=== PATIENT | female | born 1965 | race Caucasian/White ===

== ENCOUNTER 2018-10-10 10:03 | Emergency (ER) | payer OTHER ==
--- NOTE | 2018-10-10 10:43 | RADIOLOGY IMAGING REPORT ---
FACILITY: [facility] PATIENT NAME: Nany Desouza : 1965 MR: [id number] V: [id number] EXAM DATE: ORDERING PHYSICIAN: CRYSTAL HESTER TECHNOLOGIST: Location: [facility] - [place] Patient: Nany Desouza : 1965 Visit/Account:[id number] Date of Sevice: 10/10/2018 CHEST PA LAT HISTORY: Cough. Shortness of breath. History of smoking. COMPARISON: None FINDINGS: Cardiomediastinal contours: The heart size is normal. Lungs and pleura: Flattening of the diaphragms and an increase in AP diameter are suggestive COPD. T here are subtle areas of lucency in the upper lung ying bilaterally could represent changes of cent ral lobar emphysema. Correlation with past medical history is recommended. Bones/soft tissues: There are no findings of a fracture. IMPRESSION: 1. Findings suggestive of hyperinflation. Correlate with past medical history. 2. No findings of an infiltrate or congestive heart failure. Report Dictated By: Uriah Smith MD at 10/10/2018 10:37 AM Report E-Signed By: Uriah Smith MD at 10/10/2018 10:38 AM WSN:[id number]
[2018-10-10 11:00] VITALS: BP 132/78
[2018-10-10] MEDS ORDERED: AZIT-1 PO ×2 (11:13→11:16)
[2018-10-10] MEDS ORDERED: BENZ100C4 PO (11:16)
--- NOTE | 2018-10-10 11:17 | ER Report ---
History and Physical Time Seen By MD: 10:10 Hx. of Stated Complaint: PT REPORTS COUGH, CURRENTLY ON STEROIDS, DENIES FEVER AND BODY ACHES HPI/ROS CHIEF COMPLAINT: Cough productive of green sputum HISTORY OF PRESENT ILLNESS: Patient is a 53-year-old female with past medical history significant for induced lupus and history of seizures. Patient states that for the past 7-10 days she's been dealing with worsening progressive cough that has been productive of green sputum. She does have a history of reactive airways disease and does take Proventil. She is currently also on a steroid taper secondary to the lupus flare. She states that she was driving today reached [place] on her way to go to [place] and felt increasingly short of breath with cough. She reports subjective fevers and chills. She denies any ch est pain she denies abdominal pain. She denies nausea vomiting or diarrhea. REVIEW OF SYSTEMS: Respiratory: Cough productive of green sputum Cardiovascular: No chest pain, no palpitations. Gastrointestinal: No vomiting, no abdominal pain. Musculoskeletal: No back pain. Allergies: Coded Allergies: Sulfa (Sulfonamide Antibiotics) (Verified Allergy, Unknown, 10/10/18) divalproex sodium (Verified Allergy, Unknown, 10/10/18) lamotrigine (Verified Allergy, Unknown, 10/10/18) Home Meds Active Scripts Benzonatate 100 Mg Cap (TESSALON PERLE 100 MG CAP) 100 Mg Capsule, 100 MG PO TID for cough, #15 CAP 0 Refills Prov:CRYSTAL HESTER MD 10/10/18 Azithromycin (ZITHROMAX) 250 Mg Tablet, 0 PO QDAY, #6 TAB 2 tablets today; then one tablet daily for four more days Prov:CRYSTAL HESTER MD 10/10/18 Discontinued Scripts Azithromycin (ZITHROMAX) 250 Mg Tablet, 0 PO QDAY, #6 TAB 0 Refills 2 tablets today; then 1 tablet daily for 4 more days Prov:CRYSTAL HESTER MD 10/10/18 Past Medical/Surgical History Past medical history for seizure disorder as well as drug-induced lupus Constitutional Physical Exam General Appearance: The patient is alert, has no immediate need for airway protection and no current signs of toxicity. Eyes: Pupils equal and round no injection. Respiratory: Chest is non tender, lungs are clear to auscultation. Cardiac: regular rate and rhythm Gastrointestinal: Abdomen is soft and non tender, no masses, bowel sounds normal. Musculoskeletal: Neck: Neck is supple and non tender. Extremities have full range of motion and are non tender. Skin: No rashes or lesions. Medical Decision Making Data Points Laboratory Hematology Test 10/10/18 10:13 Influenza Virus Type A (PCR) Negative (NEGATIVE) Influenza Virus Type B (PCR) Negative (NEGATIVE) Chemistry Test 10/10/18 10:13 Influenza Virus Type A (PCR) Negative (NEGATIVE) Influenza Virus Type B (PCR) Negative (NEGATIVE) EKG/Imaging Imaging FACILITY: [facility] [place] PATIENT NAME: Nany Desouza : 1965 MR: [id number] V: [id number] EXAM DATE: ORDERING PHYSICIAN: CRYSTAL HESTER TECHNOLOGIST: Location: [facility] Patient: Nany Desouza : 1965 Visit/Account:[id number] Date of Sevice: 10/10/2018 CHEST PA LAT HISTORY: Cough. Shortness of breath. History of smoking. COMPARISON: None FINDINGS: Cardiomediastinal contours: The heart size is normal. Lungs and pleura: Flattening of the diaphragms and an increase in AP diameter are suggestive COPD. There are subtle areas of lucency in the upper lung ying bilaterally could represent changes of central lobar emphysema. Correlation with past medical history is recommended. Bones/soft tissues: There are no findings of a fracture. IMPRESSION: 1. Findings suggestive of hyperinflation. Correlate with past medical history. 2. No findings of an infiltrate or congestive heart failure. Report Dictated By: Uriah Smith MD at 10/10/2018 10:37 AM Report E-Signed By: Uriah Smith MD at 10/10/2018 10:38 AM WSN:[id number] ED Course/Re-evaluation ED Course 10/10/2018 11:12:19 am plan at this time will be influenza screening. Decision to Disposition Date: Oct 10, 2018 Decision to Disposition Time: 11:20 Depart Departure Latest Vital Signs Impression: Primary Impression: Acute bronchitis Condition: Improved Disposition: HOME OR SELF-CARE New Scripts Benzonatate 100 Mg Cap (TESSALON PERLE 100 MG CAP) 100 Mg Capsule 100 MG PO TID for cough, #15 CAP 0 Refills Prov: CRYSTAL HESTER MD 10/10/18 Azithromycin (ZITHROMAX) 250 Mg Tablet 0 PO QDAY, #6 TAB 2 tablets today; then one tablet daily for four more days Prov: CRYSTAL HESTER MD 10/10/18 Departure Forms: Medications Reconciliation, Patient Portal Information, ER Transition Record Patient Instructions: Acute Bronchitis (ED) Additional Instructions: Continue your steroids and Proventil as directed. If you symptoms worsen at any time proceed to the nearest emergency department Problem Qualifiers Primary Impression: Acute bronchitis Bronchitis organism: unspecified organism Qualified Codes: J20.9 - Acute bronchitis, unspecified CRYSTAL HESTER MD Oct 10, 2018 11:17
== END 2018-10-10 11:20 | disposition home or self-care (01) ==
LOC: ER 10:30
DX: J20.9 Acute bronchitis, unspecified (principal)
CPT/HCPCS: 71046; 87502; 99283